=== PATIENT | male | born 1980 | race Caucasian/White ===

== ENCOUNTER 2018-09-19 16:36 | Emergency (ER) | payer OTHER ==
[~2018-09-19] VITALS: Ht 182.9 cm; Wt 90.7 kg
[2018-09-19 16:36] VITALS: BP 142/84
[2018-09-19] MEDS ORDERED: HYDROCODONE/APAP 5/325MG 1 EACH TABLET ONE (17:22)
[2018-09-19] MEDS ORDERED: IBUPROFEN 400 MG TABLET ONE (17:22)
[2018-09-19] MEDS ORDERED: HYDROCODONE/APAP 5/325MG 1 EACH TABLET PO ONE (17:30)
[2018-09-19] MEDS ORDERED: IBUPROFEN 400 MG TABLET PO ONE (17:30)
== END 2018-09-19 18:39 | disposition home or self-care (01) ==
LOC: ER 16:38
DX: M25.572 Pain in left ankle and joints of left foot (principal)
CPT/HCPCS: 73610; 73630; 99283; A4606; Z7610

== ENCOUNTER 2018-10-29 19:15 | Emergency (ER) | payer OTHER ==
[~2018-10-29] VITALS: Ht 182.9 cm; Wt 90.7 kg
[2018-10-29 19:37] VITALS: BP 147/78
[2018-10-29] MEDS ORDERED: IBUPROFEN 600 MG TABLET PO ONE ×2 (20:00→20:02)
== END 2018-10-29 21:03 | disposition home or self-care (01) ==
LOC: ER 19:19
DX: J11.1 Influenza due to unidentified influenza virus with other respiratory manifestations (principal)
CPT/HCPCS: 87804 ×2; 99283; A4606; 87400

== ENCOUNTER 2020-05-13 00:58 | Emergency (ER) | payer SELFPAY ==
[~2020-05-13] VITALS: Ht 182.9 cm; Wt 94.3 kg
[2020-05-13 01:03] VITALS: BP 133/88
--- NOTE | 2020-05-13 01:21 | NUR ---
XRAY AT BEDSIDE
[2020-05-13] MEDS ORDERED: HYDROCODONE/APAP 5/325MG TABLET ONE (01:31)
[2020-05-13] MEDS ORDERED: HYDROCODONE/APAP 5/325MG TABLET PO ONE (02:00)
== END 2020-05-13 01:50 | disposition home or self-care (01) ==
LOC: ER 01:01
DX: S60.131A Contusion of right middle finger with damage to nail, initial encounter (principal); W22.8XXA Striking against or struck by other objects, initial encounter; Y93.89 Activity, other specified; Y92.89 Other specified places as the place of occurrence of the external cause; Y99.8 Other external cause status
CPT/HCPCS: 73140-TC

== ENCOUNTER 2020-06-22 14:11 | Emergency (ER) | payer SELFPAY ==
[~2020-06-22] VITALS: Ht 182.9 cm; Wt 74.8 kg
[2020-06-22 14:50] VITALS: BP 135/81
[2020-06-22 16:15] LABS: BASOPHILS % (AUTO) 0.9 % (0.0-2.0); EOSINOPHILS % (AUTO) 3.3 % (0.0-6.0); HEMATOCRIT 41 % (39-51); LYMPHOCYTES # (AUTO) 1.2 /CMM (0.8-4.8); MEAN CORPUSCULAR HGB CONC 32 g/dl (31.0-36.0); MEAN CORPUSCULAR VOLUME 84 fL (80-96); MONOCYTES # (AUTO) 0.3 /CMM (0.1-1.30); MONOCYTES % (AUTO) 8.2 % (2.0-12.0); NEUTROPHILS % (AUTO) 53.6 % (43.0-81.0); PLATELET COUNT (AUTO) 137 /CMM (150-450); RED BLOOD CELL COUNT(AUTO) 4.83 MIL/uL (4.5-6.0); WHITE BLOOD COUNT (AUTO) 3.6 K/uL (4.3-11.0)
[2020-06-22 16:28] LABS: ALBUMIN 4.1 g/dL (3.4-5.0); BILIRUBIN,DIRECT 0.1 mg/dL (0.0-0.2); BILIRUBIN,TOTAL 0.8 mg/dL (0.2-1.0); CALCIUM, SERUM 8.8 mg/dL (8.5-10.1); CREATININE 0.9 mg/dL (0.6-1.3); POTASSIUM 4.3 mmol/L (3.5-5.1); TOTAL PROTEIN, SERUM 7.7 g/dL (6.4-8.2)
--- NOTE | 2020-06-22 16:56 | NUR ---
Patient discharged to home in stable condition. Written and verbal after care instructions given. Patient verbalizes understanding of instruction.
== END 2020-06-22 16:56 | disposition home or self-care (01) ==
LOC: ER 14:12
DX: R21 Rash and other nonspecific skin eruption (principal)
CPT/HCPCS: 36415; 80048-TC; 80076-TC; 85025-TC